=== PATIENT | female | born 1960 | race Caucasian/White ===

== ENCOUNTER → 2018-08-05 | Outpatient (CLI) | payer OTHER ==
[~2018-08-05] MED LIST: AUG875 PO; CEP250 PO; DOC100 PO; IBU600 PO; IBUP-1618 PO; IBUP200C74 PO; KET10 PO; LEV500 PO; LOR5 PO; LOR5/325 PO; NONE CURRENTLY; NORE-22 PO; OMEP-218 PO; OND4 PO; PER PO; PHENA200 PO; TAM4 PO; TOLT4CAP13 PO
--- NOTE | 2018-08-06 10:10 | RADIOLOGY IMAGING REPORT ---
FACILITY: [facility] PATIENT NAME: SHERI KEE : [id number] MR: [id number] V: [id number] EXAM DATE: ORDERING PHYSICIAN: ELIJAH LOZANO TECHNOLOGIST: Ashlyn Sahni PROCEDURE:BILATERAL DIGITAL SCREENING MAMMOGRAM WITH CAD ASSISTED INTERPRETATION & 3D TOMOSYNTHESIS COMPARISON:Prior mammograms 08/02/17, 08/01/16, 07/30/15, 07/21/14, 07/17/13, 07/16/12. INDICATIONS:SCREENING FINDINGS: Moderately heterogeneous fibroglandular tissue is seen throughout the breasts. The parenchymal pattern has remained stable allowing for difference in mammographic technique & patient positioning. There is no evidence of malignant appearing mass, malignant appearing calcifications or other secondary sign of malignancy in either breast. DIAGNOSTIC CATEGORY 1--NEGATIVE. RECOMMENDATIONS: ROUTINE MAMMOGRAM AND CLINICAL EVALUATION. IMPRESSION: BIRADS 1: Negative. No significant abnormality is seen. Dictated by: Antonieta Gutierrez M.D. on 08/05/2018 at 17:44 Transcribed by: HECTOR on 08/06/2018 at 7:55 Approved by: Antonieta Gutierrez M.D. on 08/06/2018 at 10:09 [facility]
== END ==
LOC: MAMO 03:12
PROVIDERS: ATTEND Physician Assistant
DX: Z12.31 Encounter for screening mammogram for malignant neoplasm of breast (principal)
CPT/HCPCS: 77063; 77067

== ENCOUNTER → 2019-01-30 | Outpatient (REF) | payer OTHER | LOC: ZZSENDIN 12:58 | PROVIDERS: ATTEND Physician Assistant | DX: R30.0 Dysuria (principal) | CPT/HCPCS: 81001; 87088 ==